=== PATIENT | female | born 1930 | race Caucasian/White ===

== ENCOUNTER 2017-04-05 07:21 | Emergency (ER) | payer MEDICARE, OTHER ==
[~2017-04-05 07:21] MED LIST: ALPRAZOLAM0.25 MG PO; ASA CHILDREN'S81 MG PO; COZAAR DPS50 MG PO; FUROSEMIDE40 MG PO; NEXIUM40 MG PO; NORVASC DPS10 MG PO; POTASSIUM99 M1 PO; PRAVASTATIN SOD80 MG PO; PREDNISONE10 MG PO; PREDNISONE20 MG PO; REQUIP DPS0.5 MG PO; UNITHROID50 MCG PO; VIBRAMYCIN-DPS100 M1 PO; ZEBETA5 M1 PO
--- NOTE | 2017-04-11 15:52 | ER ---
ADMIT: 04/05/2017 RM/LOC: ER [facility] MR#: [id number] [place], [place] [id number] MICHELE PEREZ [address] [place] [address] Emergency Room Report SEX: F AGE: 86 : 1930 DATE: 04/05/2017 See T-sheet for complete H and P. ADDENDUM: An 86-year-old female, who is brought in for some shortness of breath. It has been worse overnight, but in general, she has felt like she has been more tired, but that has been going on for weeks now. Remainder of review of systems was unremarkable. On examination, she was not in any distress, but I did hear some diffuse wheezing on expiration. We did a chest x-ray, which shows nothing acute. CBC was normal. Chemistries were normal with a creatinine of 1.2, and a BNP was 476. In the ER, the patient received DuoNeb treatment, Solu-Medrol 125 mg IV, and Lasix 40 mg IV. She states her breathing was definitely improved while in the ER, and she feels comfortable going home. She will be discharged home on 5-day course of Lasix 20 mg p.o., Z-Navin, and prednisone 20 mg b.i.d. for 5 days. She is to call Dr. Combs's office on Friday to arrange for followup this week. She is told she can return for any worsening symptoms. DIAGNOSES: 1. Chronic obstructive pulmonary disease exacerbation. 2. Shortness of breath. Discharged in stable condition. Obdulio Portillo MD/ giorgio JOB #: [id number] CC: Obdulio Portillo MD, Attending Physician
== END 2017-04-05 09:05 | disposition home or self-care (01) ==
LOC: ER 07:21
DX: J44.1 Chronic obstructive pulmonary disease with (acute) exacerbation (principal); E11.9 Type 2 diabetes mellitus without complications; I10 Essential (primary) hypertension; I25.2 Old myocardial infarction; E03.9 Hypothyroidism, unspecified; Z90.49 Acquired absence of other specified parts of digestive tract; Z90.710 Acquired absence of both cervix and uterus; Z95.1 Presence of aortocoronary bypass graft; Z87.891 Personal history of nicotine dependence; Z88.5 Allergy status to narcotic agent; Z88.8 Allergy status to other drugs, medicaments and biological substances; Z79.84 Long term (current) use of oral hypoglycemic drugs; Z79.82 Long term (current) use of aspirin; Z79.899 Other long term (current) drug therapy